=== PATIENT | male | born 1950 | race Caucasian/White ===

== ENCOUNTER 2017-04-10 12:14 | Emergency (ER) | payer OTHER ==
[2017-04-10 13:08] VITALS: BP 126/77
--- NOTE | 2017-04-10 13:09 | UC ---
Eye Complaint HPI - HPI Summary HPI Summary: 66 year old male with eye complaint. 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 or metal" in his eye. Symptoms aggravated by CPAP hose disconnecting and spraying in air in eyes last night. Bilateral (left "much worse" than right" eye "yellow" discharge, erythema, "sand" foreign body sensation, and itching for five days. Used OTC eye drops to flush eyes with some improvement. Denies contact lens use. Patient is a transporation director. PCP Naveen. [ End ] - History of Current Complaint Stated Complaint: EYE COMPLAINT Time Seen by Provider: 04/10/17 13:06 Hx Obtained From: Patient Onset/Duration: Gradual Onset Timing: Constant Severity Initially: Moderate - Allergies/Home Medications Allergies/Adverse Reactions: Allergies Allergy/AdvReac Type Severity Reaction Status Date / Time No Known Allergies Allergy Verified 04/10/17 13:04 PMH/Surg Hx/FS Hx/Imm Hx Previously Healthy: Yes - Surgical History Surgical History: Yes Surgery Procedure, Year, and Place: rou en y 09/2014, stricture dilitation x 3 since 09/25. - Family History Known Family History: Positive: Hypertension Negative: Cardiac Disease - Social History Occupation: Employed Full-time Lives: With Family Substance Use Type: None - Immunization History Most Recent Tetanus Shot: 15 years ago Review of Systems Eyes: Drainage, Eye Redness Is Patient Immunocompromised?: No All Other Systems Reviewed And Are Negative: Yes Physical Exam Triage Information Reviewed: Yes Appearance: Well-Appearing, No Pain Distress, Well-Nourished Vital Signs Reviewed: Yes Eyes: Positive: Conjunctiva Inflamed, Other: - left eye diffusely with injection in the sclera and the conjunctiva.. Negative: Discharge ENT Exam: Normal ENT: Positive: Normal ENT inspection Dental Exam: Normal Neck exam: Normal Respiratory Exam: Normal Cardiovascular Exam: Normal Musculoskeletal Exam: Normal Neurological Exam: Normal Psychological Exam: Normal Skin Exam: Normal Eye Complaint Course/Dx - Course Course Of Treatment: Exam reveals no FB B/L. Flourscein uptake shows pinpoint abrasion / uptake left eye about 3 pm . no ulceration. anesthetic drops took away all pain in both eyes and no SE. Start polytrim at this time and f/u with optho. If Sx worsen go to ED. Given optho referral and he is aware of my concern for uveitis / additional concerns from the welding. He is agreeable to optho - Differential Dx/Diagnosis Differential Diagnosis/HQI/PQRI: Conjunctivitis, Corneal Abrasion, Keratitis, Penetrating Injury, Uveitis Provider Diagnoses: Corneal abrsasion left eye Discharge - Discharge Plan Condition: Good Disposition: HOME Prescriptions: Polymyx/Trimethoprim OPTH* [Polytrim OPHTH*] 1 drop BOTH EYES Q3H #1 btl Patient Education Materials: Corneal Abrasion (ED) Referrals: Chris Comer MD [Primary Care Provider] - 4 Days Domenic Alexander MD [Medical Doctor] - 1 Day (Opthomology referral ) Additional Instructions: As we discussed if your symptoms are not improved by tomorrow call for your ophthalmology appointment and we have given you a referral
[2017-04-10] MEDS ORDERED: Fluorescein Sodium TOPICAL* 1 MG TEST ONE (13:11)
[2017-04-10] MEDS ORDERED: BSS OPTH.SOL* BTL ONE (13:11)
[2017-04-10] MEDS ORDERED: Tetracaine 0.5% OPTH.SOL 4 ML* 1 DROP BTL ONE (13:11)
== END 2017-04-10 14:00 | disposition home or self-care (01) ==
LOC: UCCORT 12:14
DX: S05.02XA Injury of conjunctiva and corneal abrasion without foreign body, left eye, initial encounter (principal); H10.32 Unspecified acute conjunctivitis, left eye; H16.9 Unspecified keratitis; H20.9 Unspecified iridocyclitis; X58.XXXA Exposure to other specified factors, initial encounter
CPT/HCPCS: 99202; A9270-GY; G0463